=== PATIENT | male | born 1990 | race African-American/Black ===

== ENCOUNTER 2018-11-01 16:36 | Emergency (ER) | payer SELFPAY | END 2018-11-01 17:05 | disposition home or self-care (01) | LOC: NAV ERS 16:36 | DX: M25.531 Pain in right wrist (principal); M25.532 Pain in left wrist | CPT/HCPCS: 99281 ==

== ENCOUNTER 2019-04-16 07:12 | Emergency (ER) | payer SELFPAY ==
[2019-04-16 07:55] LABS: Bilirubin Negative (Negative); Blood, Urine Negative (Negative); Clarity Clear (Clear); Glucose, Urine (Dipstick) Negative (Negative); Leukocyte Negative (Negative); Nitrite Negative (Negative); Protein, Urine (Dipstick) Negative (Neg-Trace); Urobilinogen 0.2 mg/dL (Less than 2)
[2019-04-16 08:04] LABS: RBC/HPF 0-3 HPF (0-3); WBC/HPF 0-3 HPF (0-3)
[2019-04-16 08:05] LABS: Urine Culture Reflex No No
== END 2019-04-16 08:20 | disposition home or self-care (01) ==
LOC: NAV ERS 07:12
DX: R30.0 Dysuria (principal); F17.210 Nicotine dependence, cigarettes, uncomplicated
CPT/HCPCS: 81003; 99281

== ENCOUNTER 2021-08-19 19:49 | Emergency (ER) | payer SELFPAY ==
[2021-08-19] MEDS ORDERED: Boostrix 0.5 ML (Tdap) VIAL ONE (19:59)
[2021-08-19] MEDS ORDERED: Amoxicillin/Potassium Clav 875 MG TAB ONE (20:05)
== END 2021-08-19 20:16 | disposition home or self-care (01) ==
LOC: NAV ERS 19:49
DX: S21.151A Open bite of right front wall of thorax without penetration into thoracic cavity, initial encounter (principal); F17.210 Nicotine dependence, cigarettes, uncomplicated; Y04.1XXA Assault by human bite, initial encounter; Z23 Encounter for immunization
CPT/HCPCS: 90471; 90715

== ENCOUNTER 2022-05-13 10:08 | Emergency (ER) | payer OTHER, SELFPAY ==
[~2022-05-13 10:08] MED LIST: Iopamidol 370 76% 100 ML VIAL ONE
[2022-05-13] MEDS ORDERED: Morphine 4 MG/ML VIAL ONE (10:50)
[2022-05-13 10:59] LABS: #Basophils 0.2 thou/uL (0.0-0.2); #Lymphocytes 1.1 thou/uL (1.20-3.40); #Monocytes 1.3 thou/uL (0.11-0.59); #Neutrophils 7.2 thou/uL (1.40-6.50); %Basophils 2.2 % (0.0-1.0); %Eosinophils 0.1 % (0.0-10.0); %Monocytes 13.2 % (0.0-10.0); %Neutrophils 73.5 % (42.0-75.0); Hemoglobin 15.1 g/dL (14.0-18.0); Mean Corpuscular HGB CONC 32.6 g/dL (32.0-36.0); Mean Corpuscular Hemoglobin 29.6 pg (27.0-31.0); Mean Corpuscular Volume 90.8 fl (78.0-98.0); Mean Platelet Volume 7.6 fL (7.4-10.4); Platelet Count 228 10x3/uL (130-400); RBC Distribution Width 11.9 % (11.5-14.5); Red Blood Cell (RBC) Count 5.12 mill/uL (4.70-6.10); White Blood Cell (WBC) Count 9.8 10x3/uL (4.8-10.8)
[2022-05-13 11:00] LABS: ALT (SGPT) 46 U/L (8-55); AST (SGOT) 42 U/L (5-34); Albumin 4.7 g/dL (3.5-5.0); Alkaline Phosphatase 79 U/L (40-110); Anion Gap 18 mmol/L (10-20); BUN (Urea Nitrogen) 13 mg/dL (8.9-20.6); Bilirubin, Total 0.6 mg/dL (0.2-1.2); CK (CPK) 1991 U/L (30-200); Calc. Creatinine Clearance 0 mL/min (70-130); Calcium 9.5 mg/dL (7.8-10.44); Carbon Dioxide 18 mmol/L (22-29); Chloride 104 mmol/L (98-107); Estimated GFR 104; Globulin 2.8 g/dL (2.4-3.5); Glucose 106 mg/dL (70-105); Lipase 52 U/L (8-78); Potassium 4.1 mmol/L (3.5-5.1); Protein, Total 7.5 g/dL (6.0-8.3); Sodium 136 mmol/L (136-145)
[2022-05-13] MEDS ORDERED: Sodium Chloride 0.9% 2,000 ML ONE (11:34)
[2022-05-13] MEDS ORDERED: Ketorolac Tromethamine 30 MG/ML VIAL ONE (12:06)
[2022-05-13] MEDS ORDERED: Lidocaine 4% Topical Sol 50 ML BOT ONE (12:29)
== END 2022-05-13 13:20 | disposition home or self-care (01) ==
LOC: NAV ERS 10:08
DX: S02.2XXB Fracture of nasal bones, initial encounter for open fracture (principal); S93.401A Sprain of unspecified ligament of right ankle, initial encounter; S03.2XXA Dislocation of tooth, initial encounter; S70.02XA Contusion of left hip, initial encounter; S60.222A Contusion of left hand, initial encounter; Y04.8XXA Assault by other bodily force, initial encounter; F17.210 Nicotine dependence, cigarettes, uncomplicated
CPT/HCPCS: 70450; 70486; 71260; 72125; 74177; 80053; 82550; 83690; 83735; 85025; 93005; 96361; 96374; 96375; J1885; J2270; J7050; Q9967